=== PATIENT | female | born 1970 | race Caucasian/White ===

== ENCOUNTER 2016-12-08 13:24 | Inpatient (IN) | payer OTHER, BC ==
[~2016-12-08] VITALS: Ht 162.6 cm; Wt 57.9 kg
[~2016-12-08 13:24] MED LIST: HYDRODIURIL,ORE50 MG PO; SEASONIQUE 01 TABLET PO; SYNTHROID200 MCG PO; VICODIN 5-5001 EACH PO; ZEGERID40 MG PO
[2016-12-08 14:54] LABS: HEMATOCRIT 43.6 % (36.0-46.0); MCH 33.8 PG (29.0-34.0); MCV 93.8 FL (83-99); MEAN PLAT.VOLUME 10.3 uM^3 (9.5-12.4); PLATELET COUNT 203 K/uL (156-360); RBC DIS.WIDTH-CV 10.8 % (11.8-14.6); RBC DIS.WIDTH-SD 36.9 % (39-53); RED BLOOD COUNT 4.65 M/uL (3.80-5.20); WHITE BLOOD COUNT 5.9 K/uL (4.1-10.2)
[2016-12-08 15:19] LABS: CHLORIDE 100 mEq/L (99-109); POTASSIUM 3.9 mEq/L (3.7-5.4); SODIUM 136 mEq/L (136-147)
[2016-12-08 15:21] LABS: GLUCOSE 107 mg/dL (70-99)
[2016-12-08 15:22] LABS: ANION GAP 15 MEQ/L (2-14)
[2016-12-08 15:23] LABS: TOTAL BILIRUBIN 0.7 mg/dL (0.0-1.0)
[2016-12-08 15:25] LABS: ALKALINE PHOSPHATASE 111 IU/L (3-129); GFR ESTIMATE (CALCULATED) > 59 mL/min/
[2016-12-08 15:26] LABS: UREA NITROGEN (BUN) 9 mg/dL (9-23)
[2016-12-08 15:28] LABS: LIPASE 309 U/L (1.0-51.0)
[2016-12-08] MEDS ORDERED: SYNTHROID150 MCG PO (17:15)
[2016-12-08 23:32] VITALS: BP 166/98
[2016-12-09 03:46] VITALS: BP 145/85
[2016-12-09 07:14] LABS: EOSINOPHIL (%) 1.1 % (0-5); EOSINOPHIL COUNT 0.1 K/uL (0-0.3); HEMATOCRIT 40.3 % (36.0-46.0); IMMATURE GRANULOCYTE (%) 0.3 % (0.0-0.7); INSTRUMENT ABS NEUTROPHIL CT 4.5 K/uL; LYMPHOCYTE COUNT 1.1 K/uL (1.0-2.8); MCH 33.7 PG (29.0-34.0); MCV 96.4 FL (83-99); MEAN PLAT.VOLUME 10.1 uM^3 (9.5-12.4); MONOCYTE (%) 9.8 % (3-12); MONOCYTE COUNT 0.6 K/uL (0-0.8); NEUTROPHIL (%) 71.4 % (45-76); NEUTROPHIL COUNT 4.5 K/uL (1.8-6.4); PLATELET COUNT 167 K/uL (156-360); RBC DIS.WIDTH-SD 39.1 % (39-53); RED BLOOD COUNT 4.18 M/uL (3.80-5.20); WHITE BLOOD COUNT 6.3 K/uL (4.1-10.2)
[2016-12-09 07:53] LABS: ANION GAP 11 MEQ/L (2-14); CHLORIDE 102 MEQ/L (99-109); GFR ESTIMATE (CALCULATED) > 59 mL/min/; GLUCOSE 64 mg/dL (70-99); LIPASE 732 U/L (1.0-51.0); POTASSIUM 3.6 MEQ/L (3.7-5.4); SAMPLE HEMOLYSIS CHECK 0; SAMPLE ICTERIC CHECK 0; SAMPLE LIPEMIA CHECK 0; SODIUM 136 MEQ/L (136-147); UREA NITROGEN (BUN) 12 mg/dL (9-23)
[2016-12-09 08:10] VITALS: BP 128/83
[2016-12-09 10:52] LABS: HDL CHOLESTEROL 57 MG/DL (Desirable>=50); LDL CHOLESTEROL 66 mg/dL (Desirable<100); NON-HDL CHOLESTEROL 101 mg/dL (Desirable<160); TOTAL CHOLESTEROL 158 mg/dL (Desirable<200); TRIGLYCERIDES 174 MG/DL (Normal: <150)
[2016-12-09 12:07] VITALS: BP 123/78
[2016-12-09 14:38] LABS: ADD MIUA? YES; BILIRUBIN NEGATIVE; BLOOD NEGATIVE; COLOR YELLOW ((YELLOW)); GLUCOSE (STRIP) NEGATIVE; KETONES 80; LEUKOCYTES LARGE; NITRITE NEGATIVE; PROTEIN (STRIP) 30; SPECIFIC GRAVITY 1.026 (1.000-1.030); UROBILINOGEN 0.2 MG/DL (0.2-1.0)
[2016-12-09 15:06] LABS: EPITHELIAL CELLS 2+ /HPF; MUCUS NONE SEEN /LPF; RED BLOOD CELLS 0-5 /HPF (0-5); WHITE BLOOD CELLS TNTC /HPF (0-5)
[2016-12-09 15:07] LABS: BACTERIA 2+ /HPF; UCUL ADDED? YES
[2016-12-09 16:12] VITALS: BP 171/81
[2016-12-09 22:34] VITALS: BP 150/90
[2016-12-10 00:12] VITALS: BP 118/67
[2016-12-10 00:17] VITALS: BP 148/92
[2016-12-10 07:02] LABS: HEMATOCRIT 35.7 % (36.0-46.0); MCH 33.6 PG (29.0-34.0); MEAN PLAT.VOLUME 10.2 uM^3 (9.5-12.4); PLATELET COUNT 156 K/uL (156-360); RBC DIS.WIDTH-CV 10.7 % (11.8-14.6); RBC DIS.WIDTH-SD 38.1 % (39-53); RED BLOOD COUNT 3.72 M/uL (3.80-5.20); WHITE BLOOD COUNT 5.6 K/uL (4.1-10.2)
[2016-12-10 07:30] VITALS: BP 178/96
[2016-12-10 07:33] LABS: ANION GAP 8 MEQ/L (2-14); CHLORIDE 104 MEQ/L (99-109); GFR ESTIMATE (CALCULATED) > 59 mL/min/; GLUCOSE 91 mg/dL (70-99); MAGNESIUM 1.6 mg/dl (1.3-2.7); POTASSIUM 3.8 MEQ/L (3.7-5.4); SAMPLE HEMOLYSIS CHECK 0; SAMPLE ICTERIC CHECK 0; SAMPLE LIPEMIA CHECK 0; SODIUM 135 MEQ/L (136-147); UREA NITROGEN (BUN) 6 mg/dL (9-23)
[2016-12-10 08:43] LABS: LIPASE 352 U/L (1.0-51.0)
[2016-12-10] MEDS ORDERED: METOCLOPRAMIDE10 MG PO (11:19)
[2016-12-10] MEDS ORDERED: BENTYL20 MG PO (11:19)
[2016-12-10] MEDS ORDERED: HYDROCODON-ACE1 EAC7 PO (11:19)
[2016-12-10] MEDS ORDERED: TRAMADOL HCL50 MG PO (11:19)
[2016-12-10] MEDS ORDERED: CEFTIN500 MG PO (11:19)
== END 2016-12-10 13:58 | disposition home or self-care (01) | DRG 439 ==
LOC: EME → EDOF 21:37 → 2EASTP 22:39
PROVIDERS: Emergency Medicine; Hospitalist; Internal Medicine
DX: K85.90 Acute pancreatitis without necrosis or infection, unspecified (principal); N39.0 Urinary tract infection, site not specified; E03.9 Hypothyroidism, unspecified; K86.1 Other chronic pancreatitis; Z82.49 Family history of ischemic heart disease and other diseases of the circulatory system
CPT/HCPCS: 71010; 71260; 74177; 80048; 80053; 80061; 81003; 83690; 83735; 85025; 85027; 87086; 99281; 99285; J0696; J1170; J1650; J2270; J2405; J3480; J7030; J7050; S0028